=== PATIENT | female | born 1980 | race Caucasian/White ===

== ENCOUNTER 2018-08-02 22:28 | Emergency (ER) | payer SELFPAY ==
[~2018-08-02] VITALS: Ht 154.9 cm; Wt 61.2 kg
[2018-08-03 01:01] VITALS: BP 131/73
== END 2018-08-03 01:01 | disposition home or self-care (01) ==
LOC: ED 22:28
DX: H92.01 Otalgia, right ear (principal)

== ENCOUNTER 2018-08-05 14:17 | Emergency (ER) | payer MEDICAID ==
[~2018-08-05] VITALS: Ht 157.5 cm; Wt 59.9 kg
[2018-08-05 14:31] VITALS: Ht 157.5 cm; Wt 59.9 kg
== END 2018-08-05 15:25 | disposition home or self-care (01) ==
LOC: ED 14:17
DX: H60.501 Unspecified acute noninfective otitis externa, right ear (principal)